=== PATIENT | female | born 1950 | race African-American/Black ===

== ENCOUNTER 2016-10-17 11:43 | Emergency (ER) | payer MEDICARE, MEDICAID ==
[2016-10-17] MEDS ORDERED: DIPHENHYDRAMINE HCL 25 MG CAPSULE PO ONE (12:26)
[2016-10-17] MEDS ORDERED: FAMOTIDINE 20 MG TABLET PO ONE (12:26)
[2016-10-17] MEDS ORDERED: PREDNISONE 20 MG TABLET PO ONE (12:26)
--- NOTE | 2016-10-17 12:30 | ER Document Report ---
ED Medical Screen (RME) - General Stated Complaint: FACE ITCHING Mode of Arrival: Ambulatory Information source: Patient Notes: 66 y/o F presents to ED c/o swelling, redness, and itching to left face and right wrist since this morning. Denies headache, vision changes, recent illness , or known exposure to allergen. I have greeted and performed a rapid initial assessment of this patient. A comprehensive ED assessment and evaluation of the patient, analysis of test results and completion of the medical decision making process will be conducted by additional ED providers. TRAVEL OUTSIDE OF THE [place] IN LAST 30 DAYS: No - Related Data Allergies/Adverse Reactions: No Known Allergies Allergy (Unverified 02/05/16 14:39) Past Medical History - Past Medical History Cardiac Medical History: Reports: Hx Hypertension Denies: Hx Heart Attack Pulmonary Medical History: Reports: Hx Asthma Neurological Medical History: Denies: Hx Cerebrovascular Accident, Hx Seizures Endocrine Medical History: Reports: Hx Diabetes Mellitus Type 1 - diet controlled, Hx Diabetes Mellitus Type 2 GI Medical History: Denies: Hx Hepatitis, Hx Hiatal Hernia, Hx Ulcer Musculoskeltal Medical History: Reports Hx Arthritis Infectious Medical History: Denies: Hx Hepatitis Past Surgical History: Reports: Hx Section. Denies: Hx Mastectomy, Hx Open Heart Surgery, Hx Pacemaker - Immunizations Hx Diphtheria, Pertussis, Tetanus Vaccination: No - not up to date Physical Exam - Vital signs Vitals: Temp Pulse Resp BP Pulse Ox 97.9 F 90 17 128/69 H 99 10/17/16 12:21 10/17/16 12:21 10/17/16 12:10/17/16 12:10/17/16 12:21 - General General appearance: Appears well, Alert In distress: None Course - Vital Signs Vital signs: Temp Pulse Resp BP Pulse Ox 97.9 F 90 17 128/69 H 99 10/17/16 12:21 10/17/16 12:21 10/17/16 12:21 10/17/16 12:10/17/16 12:21
--- NOTE | 2016-10-17 13:48 | ER Document Report ---
ED Allergic Reaction - General Chief Complaint: Itching Stated Complaint: FACE ITCHING Time seen by provider: 13:43 Mode of Arrival: Ambulatory Information source: Patient Notes: 66-year-old female presents to ED for itching and swelling to the face from her cheeks up denies any shortness of breath swelling to her tongue or lips states she is not having any trouble breathing or swallowing. States she does not know of any allergies that she came in contact with she went to bed and her face was fine and she woke up and her face was swollen. TRAVEL OUTSIDE OF THE [place] IN LAST 30 DAYS: No - HPI Onset: This morning Onset/Duration: Gradual Quality of pain: Other - Itching and swelling Severity: None Pain Level: Denies Identified cause: No Skin rash / itching: Facial, Extremities - Left wrist, "Redness" Swelling: Face, Hands - Right wrist and hand Associated symptoms: None Similar symptoms previously: No Recently seen / treated by doctor: Yes - Related Data Allergies/Adverse Reactions: No Known Allergies Allergy (Unverified 02/05/16 14:39) Past Medical History - General Information source: Patient - Social History Smoking Status: Never Smoker Cigarette use (# per day): No Chew tobacco use (# tins/day): No Smoking Education Provided: No Frequency of alcohol use: None Drug Abuse: None Family History: Reviewed & Not Pertinent Patient has suicidal ideation: No Patient has homicidal ideation: No - Past Medical History Cardiac Medical History: Reports: Hx Hypertension - States she is on lisinopril Pulmonary Medical History: Reports: Hx Asthma EENT Medical History: Reports: None Neurological Medical History: Reports: None Endocrine Medical History: Reports: Hx Diabetes Mellitus Type 2 - Patient is on Januvia and metformin Renal/ Medical History: Reports: None GI Medical History: Reports: None Musculoskeltal Medical History: Reports Hx Arthritis, Reports Other - Degenerative joint disease Skin Medical History: Reports None Psychiatric Medical History: Reports: None Traumatic Medical History: Reports: None Infectious Medical History: Reports: None Past Surgical History: Reports: Hx Section, Other - Cataracts removed in January and February 2016 - Immunizations Hx Diphtheria, Pertussis, Tetanus Vaccination: No - not up to date Review of Systems - Review of Systems Constitutional: No symptoms reported EENT: Other - Periorbital edema swelling to the upper face from the cheeks up mild erythema Cardiovascular: No symptoms reported Respiratory: No symptoms reported Gastrointestinal: No symptoms reported Genitourinary: No symptoms reported Female Genitourinary: No symptoms reported Musculoskeletal: Other - Left wrist mild erythema with swelling Skin: No symptoms reported Hematologic/Lymphatic: No symptoms reported Neurological/Psychological: No symptoms reported -: Yes All other systems reviewed and negative Physical Exam - Vital signs Vitals: Temp Pulse Resp BP Pulse Ox 97.9 F 90 17 128/69 H 99 10/17/16 12:21 10/17/16 12:21 10/17/16 12:21 10/17/16 12:21 10/17/16 12:21 Interpretation: Normal - General General appearance: Appears well, Alert - HEENT Head: Normocephalic, Atraumatic Eyes: Periorbital edema - With swelling of her cheeks and forehead mild erythema Pupils: PERRL Ears: Normal External canal: Normal Tympanic membrane: Normal Sinus: Normal Nasal: Normal Mouth/Lips: Normal. No: Angioedema Mucous membranes: Normal Pharynx: Normal. No: Erythema, Tonsillar hypertrophy, Uvular edema, Potential airway comprom. Neck: Normal - Respiratory Respiratory status: No respiratory distress Chest status: Nontender Breath sounds: Normal Chest palpation: Normal - Cardiovascular Rhythm: Regular Heart sounds: Normal auscultation Murmur: No - Abdominal Inspection: Normal Distension: No distension Bowel sounds: Normal Tenderness: Nontender Organomegaly: No organomegaly - Back Back: Normal, Nontender - Extremities General upper extremity: Normal inspection, Nontender, Normal color, Normal ROM , Normal temperature General lower extremity: Normal inspection, Nontender, Normal color, Normal ROM , Normal temperature, Normal weight bearing. No: Karissa's sign - Neurological Neuro grossly intact: Yes Cognition: Normal Orientation: AAOx4 Pinckard Coma Scale Eye Opening: Spontaneous Favio Coma Scale Verbal: Oriented Pinckard Coma Scale Motor: Obeys Commands Pinckard Coma Scale Total: 15 Speech: Normal Motor strength normal: LUE, RUE, LLE, RLE Sensory: Normal - Psychological Associated symptoms: Normal affect, Normal mood - Skin Skin Temperature: Warm Skin Moisture: Dry Skin Color: Normal Course - Re-evaluation Re-evalutation: 10/17/16 14:38 Patient denied any shortness of breath any difficulty swallowing any difficulty breathing any swelling to her lips or tongue during this visit. Her periorbital swelling has slightly decreased and her cheeks have decreased moderately. Patient states she is ready to go home. She has been advised to follow-up with her primary doctor by telephone in the morning to schedule an appointment within the next day or so. - Vital Signs Vital signs: Temp Pulse Resp BP Pulse Ox 97.9 F 90 17 128/69 H 99 10/17/16 12:21 10/17/16 12:21 10/17/16 12:21 10/17/16 12:21 10/17/16 12:21 Discharge - Discharge Clinical Impression: Periorbital edema Allergic reaction Qualifiers: Encounter type: initial encounter Qualified Code(s): T78.40XA - Allergy, unspecified, initial encounter Condition: Stable Disposition: HOME, SELF-CARE Additional Instructions: ACUTE ALLERGIC REACTION: Your symptoms are due to an allergic reaction. Allergy can cause hives, swelling of the hands, feet, and face, hoarseness, and difficulty swallowing or breathing. It may be due to exposure to medication, animal dander, foods, infection, or insect bites. Medication is a common cause, even when prior use of this same medication caused no problems. Acute treatment may include adrenalin and antihistamines. Usually, the specific allergic agent can't be identified unless repeated episodes occur. Home treatment includes the following: (1) Stop any suspicious medications. This will be discussed with you. (2) Oral antihistamines for the next four to five days. Example, diphenhydramine (Benadryl) every four hours. (3) You may also use cimetidine (Tagamet), ranitidine (Zantac), or famotidine ( Pepcid) every four hours if diphenhydramine is not controlling itching and hives. (4) Avoid aspirin until the hives completely disappear. (5) Avoid hot baths or showers until the hives are completely gone. Call the doctor if faintness, difficulty swallowing, tightness in the chest , or wheezing occurs. STEROID MEDICATION: You have been given a medicine of the cortisone/steroid class. This medication is used to control inflammation or allergy. It is usually only given for a short period of time, until the acute process subsides. There are usually no side effects from short-term use of cortisone-like medications. Some persons feel an increased sense of well-being and are not sleepy at bedtime. Long-term use of cortisone medications is best avoided, unless required for a severe condition. If your condition does not remit, or relapses after the course of corticosteroid medication, you should consult your physician. ACID-SUPPRESSING MEDICATION: You have a prescription for medicine which reduces the stomach's secretion of acid. Examples include Zantac, Tagament, and Pepcid. These drugs are often used to allow healing of ulcers or esophagitis. They may be needed to prevent recurrence of ulcers in some patients, or to prevent damage from acid reflux in the esophagus. Take all medication as prescribed, even after the pain is gone. Regular antacids may be added as needed if you have symptoms while taking this medicine. These medications sometimes are prescribed for allergic reactions because they have anti-histaminic effects and relieve the rash and itching of the reaction. There are usually no side effects from this medication. But, in rare cases and particularly in the elderly, serious problems can occur. Contact your doctor if there is fever, rash, hallucinations, confusion, or unusual bruising. Contact your doctor at once if you develop lightheadedness, black or bloody stool, or bloody vomitus. USE OF DIPHENHYDRAMINE: The use of diphenhydramine (Benadryl) has been recommended to control allergic symptoms. The 25 mg strength is available over- the-counter, as well as the elixir. This antihistamine is used for many symptoms. It's useful for itching, watering eyes and nose, allergic swelling, hives, and insect stings. The medication can be repeated four times daily. Age Elixir (12.5 mg/tsp) 25 mg pill 2-3 yr 1/2 tsp 4-8 yr 1 tsp 9-14 yr 2 tsp one tab adult 1-2 tabs Antihistamines may cause drowsiness, especially with the first dose. Do not operate machinery or drive while under the effects of the medication. Do not combine the medication with alcohol, or with any other medication without talking to your doctor. FOLLOW-UP CARE: If you have been referred to a physician for follow-up care, call the physician s office for an appointment as you were instructed or within the next two days. If you experience worsening or a significant change in your symptoms, notify the physician immediately or return to the Emergency Department at any time for re-evaluation. Prescriptions: Famotidine [Pepcid 20 mg Tablet] 20 mg PO DAILY #12 tablet Prednisone [Sterapred Ds] 1 pkg PO ASDIR PRN 12 Days PRN Reason: Forms: Elevated Blood Pressure
[2016-10-17 15:00] VITALS: BP 140/64
== END 2016-10-17 15:00 | disposition home or self-care (01) ==
LOC: ER 11:43
DX: T78.40XA Allergy, unspecified, initial encounter (principal); R22.0 Localized swelling, mass and lump, head; M79.89 Other specified soft tissue disorders; L53.9 Erythematous condition, unspecified; X58.XXXA Exposure to other specified factors, initial encounter; I10 Essential (primary) hypertension; E11.9 Type 2 diabetes mellitus without complications
CPT/HCPCS: 99282; A9270 ×3; J7512

== ENCOUNTER 2017-02-12 09:01 | Emergency (ER) | payer MEDICARE, MEDICAID ==
[2017-02-12 09:08] VITALS: BP 131/64
[2017-02-12] MEDS ORDERED: IBUPROFEN 600 MG TABLET PO ONE (09:26)
--- NOTE | 2017-02-12 09:26 | ER Document Report ---
HPI - HPI Patient complains to provider of: right arm pain Pain Level: 3 Context: patient is a 66 year old female who presents to the ED complaining of RUE pain. denies fall, trauma, injury. 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 She states she is not used to driving that much or the force it requires to shift gears. Her pain is located along her right deltoid and radiates down her arm. only hurts with shoulder abduction, and twisting of her elbow. Patient states that her sensation is at her baseline since she has underlying carpal tunnel syndrome. PMH: Dm, CTS - DERM Skin Color: Normal Past Medical History - Social History Smoking Status: Never Smoker Family History: Reviewed & Not Pertinent Patient has suicidal ideation: No Patient has homicidal ideation: No - Past Medical History Cardiac Medical History: Reports: Hx Hypertension - States she is on lisinopril Denies: Hx Heart Attack Pulmonary Medical History: Reports: Hx Asthma Neurological Medical History: Denies: Hx Cerebrovascular Accident, Hx Seizures Endocrine Medical History: Reports: Hx Diabetes Mellitus Type 1 - diet controlled, Hx Diabetes Mellitus Type 2 - Patient is on Januvia and metformin Renal/ Medical History: Denies: Hx Peritoneal Dialysis GI Medical History: Denies: Hx Hepatitis, Hx Hiatal Hernia, Hx Ulcer Musculoskeltal Medical History: Reports Hx Arthritis Infectious Medical History: Denies: Hx Hepatitis Past Surgical History: Reports: Hx Section, Other - Cataracts removed in January and February 2016. Denies: Hx Mastectomy, Hx Open Heart Surgery, Hx Pacemaker - Immunizations Hx Diphtheria, Pertussis, Tetanus Vaccination: No - not up to date Vertical Provider Document - CONSTITUTIONAL Agree With Documented VS: Yes Exam Limitations: No Limitations General Appearance: WD/WN, No Apparent Distress - INFECTION CONTROL TRAVEL OUTSIDE OF THE [place] IN LAST 30 DAYS: No - NECK Neck: Normal Inspection, Other - Full range of motion no pain with cervical motion. No pain to palpation of the spinous processes or paraspinous muscles. No pain to palpation of the trapezius bilaterally. - RESPIRATORY O2 Sat by Pulse Oximetry: 99 - CARDIOVASCULAR Pulses: Normal: Radial Notes: Capillary refill less than 2 seconds in all upper extremity digits - MUSCULOSKELETAL/EXTREMETIES Musculoskeletal/Extremeties: MAEW, FROM, Tender - Minimal tenderness to palpation over the deltoid and triceps., No Edema. 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 - NEURO Level of Consciousness: Awake, Alert, Appropriate Motor/Sensory: No Motor Deficit, No Sensory Deficit Course - Re-evaluation Re-evalutation: 02/12/17 09:31 Patient is a 66-year-old female hemodynamically stable, no acute distress afebrile. History and physical exam is consistent with a muscle strain. Will discharge home on Motrin and with shoulder exercises. Can follow-up with primary care as needed. - Vital Signs Vital signs: Temp Pulse Resp BP Pulse Ox 97.5 F 100 18 131/64 H 99 02/12/17 09:05 02/12/17 09:05 02/12/17 09:05 02/12/17 09:05 02/12/17 09:05 Discharge - Discharge Clinical Impression: Muscle strain of right upper arm Condition: Good Disposition: HOME, SELF-CARE Instructions: Muscle Strain ([facility]), Exercise Program for the Shoulder ([facility]), Ice Packs ([facility]), Warm Packs ([facility]) Prescriptions: Ibuprofen [Motrin 600 Mg Tablet] 600 mg PO TID #15 tablet Forms: Elevated Blood Pressure
== END 2017-02-12 09:34 | disposition home or self-care (01) ==
LOC: ER 09:01
DX: S46.911A Strain of unspecified muscle, fascia and tendon at shoulder and upper arm level, right arm, initial encounter (principal); X58.XXXA Exposure to other specified factors, initial encounter; I10 Essential (primary) hypertension; J45.909 Unspecified asthma, uncomplicated; E11.9 Type 2 diabetes mellitus without complications
CPT/HCPCS: 99283; A9270

== ENCOUNTER 2017-08-14 09:45 | Emergency (ER) | payer MEDICARE, MEDICAID ==
[2017-08-14 09:50] VITALS: BP 141/70
[2017-08-14] MEDS ORDERED: LIDOCAINE 5% (700 MG) TRANSDERMAL ADH..PATCH TP ONE (10:24)
--- NOTE | 2017-08-14 10:28 | ER Document Report ---
HPI - HPI Pain Level: 2 Notes: Patient is a 67-year-old female who presents the ED complaining of right lower rib pain status post injury 3 days ago. Patient states that she tipped over in her chair and hit her right side off of the wall. Patient states that she has had soreness in that area since then. patient states that stretching movements will increase the soreness, but at rest she does not have any pain. Patient states that pushing on the lower rib does increase her symptoms as well. She has not noticed any bruising. She still eating and drinking without any difficulties. She still urinating normally and having normal bowel movements. She denies any other recent illness. Patient states that she is ambulatory without any shortness of breath or chest pains. Patient denies any drug allergies. No other concerns or complaints. Patient states that she never has any pain, and wanted to know a little more where the soreness is coming from. Patient states that her soreness is mild and is described as soreness. Denies any headache, fever, head injury, neck pain, URI, sore throat, chest pain, palpitations, syncope, cough, shortness of breath, wheeze, dyspnea, abdominal pain, nausea/vomiting/diarrhea, urinary retention, dysuria, hematuria, loss of control of bowel or bladder, numbness/tingling, saddle anesthesia, muscle paralysis/weakness, or rash. - ROS Notes: REVIEW OF SYSTEMS: CONSTITUTIONAL : Denies fever, chills, or sweats. Denies recent illness. EENT: Denies eye, ear, throat, or mouth pain or symptoms. Denies nasal or sinus congestion or discharge. Denies throat, tongue, or mouth swelling or difficulty swallowing. CARDIOVASCULAR: Denies chest pain. Denies palpitations or racing or irregular heart beat. Denies ankle edema. RESPIRATORY: Denies cough, cold, or chest congestion. Denies shortness of breath, difficulty breathing, or wheezing. GASTROINTESTINAL: Denies abdominal pain or distention. Denies nausea, vomiting , or diarrhea. Denies blood in vomitus, stools, or per rectum. Denies black, tarry stools. Denies constipation. GENITOURINARY: Denies difficulty urinating, painful urination, burning, frequency, blood in urine, or discharge. MUSCULOSKELETAL: see hpi SKIN: Denies rash, lesions or sores. NEUROLOGICAL: Denies confusion or altered mental status. Denies passing out or loss of consciousness. Denies dizziness or lightheadedness. Denies headache. Denies weakness or paralysis or loss of use of either side. Denies problems with gait or speech. Denies sensory loss, numbness, or tingling. ALL OTHER SYSTEMS REVIEWED AND NEGATIVE. Dictation was performed using [email or web address] voice recognition software - DERM Skin Color: Normal Past Medical History - Social History Smoking Status: Never Smoker Family History: Reviewed & Not Pertinent Patient has suicidal ideation: No Patient has homicidal ideation: No - Past Medical History Cardiac Medical History: Reports: Hx Hypertension - States she is on lisinopril Denies: Hx Heart Attack Pulmonary Medical History: Reports: Hx Asthma Neurological Medical History: Denies: Hx Cerebrovascular Accident, Hx Seizures Endocrine Medical History: Reports: Hx Diabetes Mellitus Type 1 - diet controlled, Hx Diabetes Mellitus Type 2 - Patient is on Januvia and metformin Renal/ Medical History: Denies: Hx Peritoneal Dialysis GI Medical History: Denies: Hx Hepatitis, Hx Hiatal Hernia, Hx Ulcer Musculoskeltal Medical History: Reports Hx Arthritis Infectious Medical History: Denies: Hx Hepatitis Past Surgical History: Reports: Hx Section, Other - Cataracts removed in January and February 2016. Denies: Hx Mastectomy, Hx Open Heart Surgery, Hx Pacemaker - Immunizations Hx Diphtheria, Pertussis, Tetanus Vaccination: No - not up to date Vertical Provider Document - CONSTITUTIONAL Agree With Documented VS: Yes Notes: PHYSICAL EXAMINATION: GENERAL: Well-appearing, well-nourished and in no acute distress. LUNGS: Breath sounds clear to auscultation bilaterally and equal. No wheezes rales or rhonchi. HEART: Regular rate and rhythm without murmurs, rubs, gallops. ABDOMEN: Soft, nontender, nondistended abdomen. No guarding, no rebound. No masses appreciated. Normal bowel sounds present. No CVA tenderness bilaterally. Musculoskeletal: Rt rib: Patient instructed on risks and benefits of medications prescribed. Denies any concerns regarding such.No ecchymosis, step- off, deformity, erythema, or skin trauma noted to the rt flank. + tenderness to the rt posterolateral 10th rib is w/o guarding. I am able to percuss on this rib w/o intolerance. No other surrounding tenderness to chest/back/abd. Ext b/l: FROM to passive/active. Strength 5+/5. Extremities: No cyanosis, clubbing, or edema b/l. Peripheral pulses 2+. Capillary refill less than 3 seconds. NEUROLOGICAL: Normal speech, normal gait. Normal sensory, motor exams PSYCH: Normal mood, normal affect. SKIN: Warm, Dry, normal turgor, no rashes or lesions noted. - INFECTION CONTROL TRAVEL OUTSIDE OF THE [place] IN LAST 30 DAYS: No - RESPIRATORY O2 Sat by Pulse Oximetry: 97 Course - Re-evaluation Re-evalutation: 08/14/17 10:26 Patient is an afebrile, well-hydrated, 67-year-old female who presents the ED with a right lower rib contusion based on H&P. Vitals are stable. PE is otherwise unremarkable. I have a low suspicion for any fracture, dislocation, pneumothorax, acute abdomen, organ rupture, or any other systemic emergent condition at this time. Patient is aware that her condition can change from initial presentation and she needs to monitor symptoms closely and seek medical attention with any acute changes. I do not feel that imaging is warranted at this time based on H&P. Lidoderm patch was applied today. Conservative measures for symptoms. Recheck with your PCM in 3-5 days. Return to the ED with any worsening/concerning symptoms otherwise as reviewed in discharge. Consider consult with orthopedics and physical therapy if needed. Patient is in agreement. - Vital Signs Vital signs: Temp Pulse Resp BP Pulse Ox 98.3 F 87 16 141/70 H 97 08/14/17 09:50 08/14/17 09:50 08/14/17 09:50 08/14/17 09:50 08/14/17 09:50 Discharge - Discharge Clinical Impression: Contusion of rib on right side Qualifiers: Encounter type: initial encounter Qualified Code(s): S20.211A - Contusion of right front wall of thorax, initial encounter Condition: Stable Disposition: HOME, SELF-CARE Instructions: Rib Contusion ([facility]), Ice Packs ([facility]), Warm Packs ([facility]) Additional Instructions: Rest, Ice Tylenol/ibuprofen as needed Light stretches daily Strength exercises as able Moist heat and massage may help F/u with your PCP in 3-5 days for a recheck Consider consult(s) with Orthopedics/physical therapy for ongoing/worsening symptoms Return to the ED with any worsening symptoms and/or development of fever, headache, chest pain, palpitations, syncope, cough, wheeze, shortness of breath , trouble breathing, abdominal pain, n/v/d, muscle weakness/paralysis, numbness/ tingling, swelling, redness, blood in urine/stool, or other worsening symptoms that are concerning to you. Forms: Elevated Blood Pressure Referrals: RAINA GONZALEZ MD [Primary Care Provider] - Follow up in 3-5 days [facility] [Provider Group] - Follow up as needed
== END 2017-08-14 10:35 | disposition home or self-care (01) ==
LOC: ER 09:45
DX: S20.211A Contusion of right front wall of thorax, initial encounter (principal); R07.81 Pleurodynia; W22.03XA Walked into furniture, initial encounter
CPT/HCPCS: 99283